=== PATIENT | female | born 1980 | race Caucasian/White ===

== ENCOUNTER 2017-12-22 11:45 | Emergency (ER) | payer OTHER ==
[2017-12-22 12:15] VITALS: BP 126/77
--- NOTE | 2017-12-22 15:52 | UC ---
Charly oGmez Angela, scribed for Janes Wilkins MD on 12/22/17 at 1202 . Back Pain HPI - HPI Summary HPI Summary: This pt is a 37 y/o female presenting to [facility] c/o left upper back pain for the past couple of days. Pt denies any trauma or injury to her back. 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 Pt notes that she felt better after this but this morning her pain continued. Denies fever, nausea, vomiting, dysuria, hematuria, urinary symptoms. LMP: a couple of days ago. - History of Current Complaint Chief Complaint: UCGU Stated Complaint: BACK PAIN Time Seen by Provider: 12/22/17 11:56 Hx Obtained From: Patient Hx Last Menstrual Period: 12/06/17 Onset/Duration: Lasting Days, Still Present Timing: Lasting Days Pain Intensity: 0 Pain Scale Used: 0-10 Numeric Back Pain: Is Discrete @ - left upper back Aggravating Factor(s): Nothing Alleviating Factor(s): Nothing Associated Signs And Symptoms: Negative: Fever, Weakness, Numbness, Tingling, Bladder Incontinence, Bowel Incontinence, Other - urinary symptoms, dysuria, hematuria - Allergies/Home Medications Allergies/Adverse Reactions: Allergies Allergy/AdvReac Type Severity Reaction Status Date / Time No Known Allergies Allergy Verified 12/22/17 11:54 Home Medications: Home Medications Venlafaxine EXT RELEASE CAP* [Effexor Xr CAP*] 37.5 mg PO DAILY 12/22/17 [ History Confirmed 12/22/17] PMH/Surg Hx/FS Hx/Imm Hx Other Endocrine History: DENIES: diabetes Other Cardiovascular History: DENIES: HTN Other Respiratory History: DENIES: asthma - Surgical History Surgical History: None - Family History Known Family History: Negative: Cardiac Disease, Hypertension, Diabetes - Social History Alcohol Use: Rare Substance Use Type: None Smoking Status (MU): Never Smoked Tobacco Review of Systems Constitutional: Negative Skin: Negative Eyes: Negative ENT: Negative Respiratory: Negative Cardiovascular: Negative Gastrointestinal: Negative Genitourinary: Negative Motor: Negative Neurovascular: Negative Musculoskeletal: Other: - left upper back pain Neurological: Negative Psychological: Negative Is Patient Immunocompromised?: No All Other Systems Reviewed And Are Negative: Yes Physical Exam - Summary Physical Exam Summary: VITAL SIGNS: Reviewed. GENERAL: Patient is a well-developed and nourished female who is lying comfortable in the stretcher. Patient is not in any acute respiratory distress. HEAD AND FACE: Normocephalic EYES: PERRLA, EOMI x 2. EARS: Hearing grossly intact. MOUTH: Oropharynx within normal limits. NECK: Supple, trachea is midline, no adenopathy, no JVD, no carotid bruit. CHEST: Symmetric, no tenderness at palpation LUNGS: Clear to auscultation bilaterally. No wheezing or crackles. CVS: Regular rate and rhythm, S1 and S2 present, no murmurs or gallops appreciated. ABDOMEN: Soft, non-tender. Bowel sounds are normal. No abdominal abnormal pulsations. EXTREMITIES: Full ROM in all major joints, no edema, no cyanosis or clubbing. NEURO: Alert and oriented x 3. No acute neurological deficits. Speech is normal and follows commands. SKIN: Dry and warm Triage Information Reviewed: Yes Vital Signs: Initial Vital Signs Temp 98.1 F 12/22/17 11:49 Pulse 97 12/22/17 11:49 Resp 16 12/22/17 11:49 BP 126/77 12/22/17 11:49 Pulse Ox 100 12/22/17 11:49 Vital Signs Reviewed: Yes Re-Evaluation - Re-Evaluation First Eval Re-Evaluation Time: 12:14 Comment: I reviewed the urinalysis results with the pt. She will be discharged home. Back Pain Course/Dx - Course Course Of Treatment: Pt is a 37 y/o female who presents with left upper back pain for the past couple of days. Pt denies any trauma or injury to her back. 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 Pt notes that she felt better after this but this morning her pain continued. Denies fever, nausea, vomiting, dysuria, hematuria, urinary symptoms. LMP: a couple of days ago. POC urine is negative for UTI. Pt declined any pain medications. She will be discharged home with follow up from her PCP. I discussed the urinalysis result with the patient. Pt was instructed to return to the urgent care or go to ER immediately if any of the symptoms return or worsens. Plan of care was discussed with the patient and pt understands and agrees. All questions were answered to patient satisfaction. There were no further complaints or concerns. Pt is hemodynamically stable, alert and oriented x3. The patient was found to have increased blood pressure in UC. The patient will follow up with PCP for better control of BP. - Differential Dx/Diagnosis Provider Diagnoses: Back pain Discharge - Sign-Out/Discharge Documenting (check all that apply): Discharge/Admit/Transfer - Discharge - Discharge Plan Condition: Stable Disposition: HOME Patient Education Materials: Back Pain (ED) Referrals: [facility] [Outside] Additional Instructions: FOLLOW UP WITH YOUR PRIMARY CARE PROVIDER WITHIN ONE WEEK FOR HIGH BLOOD PRESSURE NOTED TODAY. RETURN TO URGENT CARE OR THE ED FOR ANY WORSENING OR NEW SYMPTOMS. The documentation as recorded by the Charly valentine Angela accurately reflects the service I personally performed and the decisions made by , Janes Wilkins MD.
== END 2017-12-22 12:16 | disposition home or self-care (01) ==
LOC: UCEAST 11:45
DX: M54.6 Pain in thoracic spine (principal)
CPT/HCPCS: 81003; 99211; G0463

== ENCOUNTER 2018-07-05 14:25 | Emergency (ER) | payer OTHER ==
[2018-07-05 14:41] VITALS: BP 123/68
[2018-07-05] MEDS ORDERED: diPHENhydraMINE LIQ* 12.5 MG/5 ML UDC PO ONE ×2 (14:56→15:40)
[2018-07-05] MEDS ORDERED: PrednisoLONE 3 MG/ML ORAL.SOLU 15 MG/5 ML ORAL.SOLN PO ONE (14:57)
--- NOTE | 2018-07-05 15:02 | UC ---
Allergic Reaction HPI - HPI Summary HPI Summary: 38-year-old woman comes to clinic today with a chief complaint of throat irritation. She was eating a salad at a local deli when her throat started feeling irritated and she was having some dry coughing. [place] like her throat was closing up. She has no known prior history of allergies. No change in voice no hives. She tells me it feel slightly better than it did when it first happened. - History of Current Complaint Chief Complaint: UCAllergicReaction Stated Complaint: ALLERGIC REACTION Time Seen by Provider: 07/05/18 14:45 Hx Last Menstrual Period: 12 days ago Pain Intensity: 0 - Allergies/Home Medications Allergies/Adverse Reactions: Allergies Allergy/AdvReac Type Severity Reaction Status Date / Time No Known Allergies Allergy Verified 07/05/18 14:43 PMH/Surg Hx/FS Hx/Imm Hx Previously Healthy: Yes Psychological History: Anxiety - Surgical History Surgical History: None - Family History Known Family History: Positive: None Negative: Cardiac Disease, Hypertension, Diabetes - Social History Alcohol Use: Rare Substance Use Type: None Smoking Status (MU): Never Smoked Tobacco Review of Systems All Other Systems Reviewed And Are Negative: Yes Constitutional: Positive: Negative Skin: Positive: Negative Eyes: Positive: Negative ENT: Positive: Sore Throat Respiratory: Positive: Negative Cardiovascular: Positive: Negative Gastrointestinal: Positive: Negative Motor: Positive: Negative Neurovascular: Positive: Negative Musculoskeletal: Positive: Negative Neurological: Positive: Negative Psychological: Positive: Anxious Is Patient Immunocompromised?: No Physical Exam Triage Information Reviewed: Yes Appearance: Well-Appearing, No Pain Distress, Well-Nourished Vital Signs: Initial Vital Signs Temp 98 F 07/05/18 14:36 Pulse 91 07/05/18 14:36 Resp 16 07/05/18 14:36 BP 123/68 07/05/18 14:36 Pulse Ox 99 07/05/18 14:36 Vital Signs Reviewed: Yes Eye Exam: Normal Eyes: Positive: Conjunctiva Clear ENT: Positive: Pharynx normal. Negative: Muffled voice, Hoarse voice Neck exam: Normal Neck: Positive: Supple Respiratory: Positive: Lungs clear, Normal breath sounds, No respiratory distress. Negative: Stridor, Wheezing Cardiovascular: Positive: RRR Musculoskeletal Exam: Normal Musculoskeletal: Positive: Strength Intact, ROM Intact Neurological Exam: Normal Neurological: Positive: Alert, Muscle Tone Normal Psychological Exam: Normal Psychological: Positive: Age Appropriate Behavior Skin Exam: Normal Skin: Positive: Other - PATIENT REPORTS HAVING A RASH ON LEFT UPPER LEG FOR SEVERAL DAYS. SHE DECLINES SHOWING IT ON EXAM. Allergic Reaction Course/Dx - Course Course Of Treatment: In clinic I ordered Benadryl 50 mg and prednisolone 60 mg by mouth. Patient preferred to take Benadryl 25 mg by mouth only. After taking the Benadryl 25 mg she felt improved no shortness of breath last irritation in her throat. She declined a prescription for an oral steroid. Plan is to take Benadryl by mouth as needed. Reevaluation if worse or any questions or concerns. - Differential Dx/Diagnosis Provider Diagnosis: Allergic reaction Discharge - Sign-Out/Discharge Documenting (check all that apply): Patient Departure All imaging exams completed and their final reports reviewed: No Studies - Discharge Plan Condition: Stable Disposition: HOME Patient Education Materials: Food Allergy (ED) Referrals: Janes Blount MD [Primary Care Provider] - Additional Instructions: TAKE BENADRYL 25MG EVERY 4 HOURS NEEDED. FOLLOW UP WITH YOUR DOCTOR IF NOT COMPLETELY IMPROVED. GO TO THE EMERGENCY DEPARTMENT FOR ANY WORSENING OF YOUR CONDITION; DIFFICULTY WITH BREATHING OR SWALLOWING OR QUESTIONS OR CONCERNS. - Billing Disposition and Condition Condition: STABLE Disposition: Home
== END 2018-07-05 15:40 | disposition home or self-care (01) ==
LOC: UCEAST 14:25
DX: T78.40XA Allergy, unspecified, initial encounter (principal); X58.XXXA Exposure to other specified factors, initial encounter
CPT/HCPCS: 99212; A9270-GY; G0463